=== PATIENT | female | born 1990 | race Caucasian/White ===

== ENCOUNTER 2016-12-25 11:51 | Emergency (ER) | payer OTHER ==
[~2016-12-25] VITALS: Ht 162.6 cm; Wt 90.9 kg
[~2016-12-25 11:51] MED LIST: OMEP20CA11 PO; ONDA-54 PO; TRAM50TA2 PO
[2016-12-25 12:06] VITALS: BP 118/76; PULSE 65; RESP 17; O2SAT 99
[2016-12-25] MEDS ORDERED: Albuterol-Ipratropium 3 mL Inhalation Solution NEB ONE (12:20)
--- NOTE | 2016-12-25 12:21 | ED.REPORT ---
HPI-General Illness Date of Service December 25, 2016 ED Provider: Franky Sellers MD Pt is a 26 y.o. female with a hx of asthma who presents to the ED c/o a cough onset 3 days ago with associated wheezing and feeling that she is having an asthma exacerbation. She reports associated chest pain, fever, chills, diaphoresis, and fatigue. Pt states that it feels like she has "pop rocks" in her lungs. She states that she has had to use prednisone in the past. She feels that her symptoms are severe enough that she may need prednisone again. Nursing Notes Stated Complaint: SHORTNESS OF BREATH/ DIZZY Chief Complaint: Respiratory Distress Nursing Notes Reviewed: Yes Allergies: Coded Allergies: cortisone (Verified Allergy, Severe, blisters in throat, 12/25/16) Scheduled Omeprazole (Omeprazole) 20 Mg Capsule.dr 20 MG PO DAILY Scheduled PRN Tramadol (Tramadol) 50 Mg Tablet 50 MG PO Q4H PRN PRN For Pain Miscellaneous Medications Ondansetron (Ondansetron) 8 Mg Tablet 8 MG PO General Time Seen by MD: 12:16 Chief Complaint Cough Hx Obtained From: Patient Arrived By: Walk-in Sudden in Onset?: Yes Onset Occurred: 3 days ago Symptom Duration: Since onset Location: : Chest Quality: Painful Similar Sx Previous: Yes Past Medical History Past Medical History Reports: Asthma, GERD Past Surgical History Reports: , Tonsillectomy Smoking History Never Smoker Ambulatory Status Independent Review of Systems Full Review of Systems Constitutional: Reports: Chills, Fatigue, Fever Respiratory: Reports: Non-productive cough Cardiovascular: Reports: Chest pain Skin: Reports Diaphoresis Complete sys rev & neg: except as marked. Physical Exam Vital Signs Vital Signs Date Time Temp Pulse Resp B/P Pulse Ox O2 Delivery O2 Flow Rate FiO2 12/25/16 13:54 36.8 67 16 120/72 99 Room Air 12/25/16 13:09 68 18 98 Room Air 12/25/16 12:06 37.6 65 17 118/76 99 Room Air Initial VS: Reviewed Abdomen / GI: No distention Extremities: Vascular intact, Neuro intact Skin: Warm, Dry, No cyanosis Neurologic: Alert, Oriented, Nonfocal Psychiatric: Mood/affect normal, Behavior normal, Normal thought content General/Constitutional: Awake, Alert, No acute distress, Well appearing, Well developed, Well hydrated, Well nourished, Not toxic appearing Head / Eyes: Atraumatic, Normocephalic, PERRL Respiratory / Chest: Atraumatic Wheezing / Retractions: Positive: Wheezing expiratory (Mild, scattered) Coarse breath sounds throughout Cardiovascular: Heart rate NL, Regular rhythm, Heart sounds NL, Cap refill not delayed, Peripheral circulation NL No calf swelling Interpretation & Diagnostics X-Ray Chest Interpretation Chest Xray Interpretation: IMPRESSION: Negative chest. Dictated by: Mohamud Devlin M.D. on 12/25/2016 at 12:49 Approved by: Mhoamud Devlin M.D. on 12/25/2016 at 12:49 Re-Eval/Medical Decision Med Decision/Clinical Course Pt is a 26 y.o. female with a hx of asthma who presents to the ED c/o a cough onset 3 days ago with associated wheezing and feeling that she is having an asthma exacerbation. She reports associated chest pain, fever, chills, diaphoresis, and fatigue. Pt states that it feels like she has "pop rocks" in her lungs. She states that she has had to use prednisone in the past. She feels that her symptoms are severe enough that she may need prednisone again. Here in the emergency department the patient is afebrile with stable vital signs and examination as above. CXR: Obtained, reviewed and interpreted by myself shows no evidence of infiltrates, effusions or pneumothorax. Cardiac and mediastinal silhouette normal. No bony or soft tissue abnormalities. Patient was treated with a DuoNeb x2 and reported significant symptomatic improvement. Repeat auscultation of her lungs revealed increased air movement and decreased wheezing. She will be discharged with a 5 day course of prednisone and advised to use her albuterol inhaler every 2-4 hours for the next 48 hours. She will follow up closely with her primary care physician. Presentation at this time is most consistent with asthma exacerbation. I see no evidence suggestive of pulmonary embolism, pneumonia, pneumothorax or other immediately concerning process. I feel she is appropriate for outpatient management. Prior to discharge follow-up and return precautions were reviewed in detail with the patient who verbalized understanding and agreement with the plan. The patient was discharged in stable condition. Source of Hx: Old records Re-Evaluation/Progress Note: Pt rechekced. Pt feels improved after duo neb treatment. Discussed imaging and plan for discharge, pt understands and agrees with plan. Counseled Regarding: Diagnosis, Lab results, Need for follow-up Discharge & Departure Primary Impression: Asthma exacerbation Additional Impressions: Wheezing Shortness of breath Disposition: Home Discharge Condition All VS Reviewed: Yes Condition: Improved Referrals: ESHA MONACO PA-C (PCP) Lauri Attestation Portions of this note were transcribed by Alejandro Talbot. I, Dr. Sellers personally performed the history, physical exam and medical decision-making; I reviewed and confirmed the accuracy of the information in the transcribed note. Signed by: Lauri Sprague, 12/25/16 and 1353. copies to: ESHA MONACO PA-C, Beck O MD December 25, 2016 12:21 ALEJANDRO TALBOT December 25, 2016 12:48
--- NOTE | 2016-12-25 12:51 | DRSVH ---
PROCEDURE: X-RAY CHEST, TWO VIEWS ([id number]) INDICATIONS: sob TECHNIQUE: 2 views of the chest were acquired. COMPARISON: None. FINDINGS: Surgical changes and devices: None. Lungs and pleura: No pleural effusions or pneumothorax. Lungs are clear. Mediastinum: Mediastinal contours are normal. Heart size is normal. Bones and chest wall: No suspicious bony abnormalities. Soft tissues appear unremarkable. IMPRESSION: Negative chest. Dictated by: Mohamud Devlin M.D. on 12/25/2016 at 12:49 Approved by: Mohamud Devlin M.D. on 12/25/2016 at 12:49
[2016-12-25 13:09] VITALS: PULSE 68; RESP 18; O2SAT 98
[2016-12-25 13:54] VITALS: BP 120/72; PULSE 67; RESP 16; O2SAT 99
== END 2016-12-25 13:55 | disposition home or self-care (01) ==
LOC: SED 11:51
DX: J45.901 Unspecified asthma with (acute) exacerbation (principal); R53.83 Other fatigue; K21.9 Gastro-esophageal reflux disease without esophagitis; Z88.8 Allergy status to other drugs, medicaments and biological substances
CPT/HCPCS: 71020; 94640; 94664; 99284; J7620

== ENCOUNTER 2017-01-19 11:09 | Emergency (ER) | payer OTHER ==
[~2017-01-19] VITALS: Ht 162.6 cm; Wt 92.0 kg
[2017-01-19 11:28] VITALS: BP 118/78; RESP 16; O2SAT 99
--- NOTE | 2017-01-19 12:01 | ED.REPORT ---
HPI-General Illness Date of Service Jan 19, 2017 ED Provider: Tk Pimentel PA-C Deena is an otherwise healthy 26-year-old female presenting with a chief complaint of left ear pain/itching over the last 4 days. She reports pain radiating to her neck, resulting in a severe global headache last night which inhibited sleep. He reports the headache progressively worsened over the course of 2 hours. He reports a 2 year history of her jaw popping on the left side. She denies history of ear infection, discharge from the ears, upper respiratory symptoms, cough, wheeze, shortness of breath, fever, abdominal pain , vomiting, diarrhea. Denies smoking. Nursing Notes Stated Complaint: LEFT EAR PAIN/NECK PAIN Chief Complaint: ENT & Mouth Nursing Notes Reviewed: Yes Allergies: Coded Allergies: cortisone (Verified Allergy, Severe, blisters in throat, 12/25/16) Scheduled Omeprazole (Omeprazole) 20 Mg Capsule.dr 20 MG PO DAILY Scheduled PRN Tramadol (Tramadol) 50 Mg Tablet 50 MG PO Q4H PRN PRN For Pain Miscellaneous Medications Ondansetron (Ondansetron) 8 Mg Tablet 8 MG PO General Time Seen by MD: 11:36 Chief Complaint Ear pain Past Medical History Past Medical History Reports: Asthma, GERD Past Surgical History Reports: , Tonsillectomy Smoking History Never Smoker Ambulatory Status Independent Review of Systems Negative unless stated otherwise in history of present illness Physical Exam General: Well appearing, well developed, well nourished, no acute distress. Head: Atraumatic, normocephalic. No mastoid tenderness. Eyes: No scleral icterus or injection. No discharge. PERRL. Vision grossly intact. Ears: Pinna and tragus nontender with manipulation. External auditory canal patent, atraumatic and without discharge. Tympanic membrane watts, shiny and translucent without fluid, bulging, retraction or perforation. Hearing grossly intact. Nose: Symmetrical, nares patent without discharge. No frontal or maxillary sinus tenderness. Mouth/pharynx: Tenderness with palpation and range of motion of the left TMJ. Normal dentition, mucus membranes moist. Tonsils surgically absent, uvula midline. Pharynx noninjected, no cobblestoning or discharge. Voice clear. Neck: No tenderness or lymphadenopathy. Trachea midline. Respiratory: Regular rate and rhythm. Breath sounds present, clear to auscultation and equal bilaterally. No respiratory distress. No increased work of breathing, speaks in complete sentences. Cardiovascular: Regular rate and rhythm, without murmur, gallop or rub. No pedal edema. Gastrointestinal: Abdomen flat and non-tender without guarding or rebound. Bowel sounds normoactive. Skin: Warm and dry. Neurological: Grossly nonfocal. Negative Kernig and Brudzinski. Psychological: Alert and oriented. Speech appropriate, linear and logical. Behavior appropriate. Vital Signs Vital Signs Date Time Temp Pulse Resp B/P Pulse Ox O2 Delivery O2 Flow Rate FiO2 01/19/17 12:16 60 15 119/68 100 Room Air 01/19/17 11:28 37.0 66 16 118/78 99 Room Air Normal Re-Eval/Medical Decision Med Decision/Clinical Course Otherwise healthy 26-year-old female presents with chief complaint of left ear pain over the last 3 days progressing to neck pain and global headache last night. Patient reports onset of headache over approximately 2 hours. Reports a history of clicking in her jaw over the last 2 years. Denies upper respiratory symptoms, fever. Physical examination reveals normal vitals, normal -appearing TM, negative Kernig and Brudzinski. Tenderness and pain elicited with palpation of left TMJ with range of motion. I discussed his case with Dr. Coley. I believe this is TMJ syndrome causing her headache and I am reassured there is unlikely to be an otitis media, otitis externa, mastoiditis, meningitis, subarachnoid hemorrhage, peritonsillar abscess. Provided ketorolac and acetaminophen in the department. Advise regarding [id number] analgesia. Advised regarding primary care follow-up, provided emergency return precautions. Patient verbalized understanding of, and consent to, the plan. Discharge & Departure Primary Impression: TMJ (temporomandibular joint disorder) Disposition: Home Discharge Condition All VS Reviewed: Yes Condition: Stable Additional Instructions: Evaluation of left ear pain in the emergency department includes history and physical examination which suggests that this pain is most likely caused by dysfunction of her temporomandibular joint, the left joint of your jaw. You do not appear to have an ear infection or a more concerning condition such as mastoiditis or meningitis. I believe you are stable and safe to go home. Treatment is with anti-inflammatory medications such as ibuprofen. The pain is best treated with 600 mg of ibuprofen (Advil, Motrin) every 6 hours. You can add 1000 mg of acetaminophen (Tylenol) every 6 hours. These drugs can be taken at the same time for more severe pain. Apply warm compress to the affected area 2-3 times a day, and limit your diet to soft food for the next several days. You can also try elevating the head of your bed 30. Follow-up with your primary care provider in a week or so. Return to the emergency department for any new or worsening symptoms including fever, increasing headache, increasing pain, vomiting, discharge from the ear. Referrals: OTHER,PHYSICIAN MIKE Martines [place] [facility] Provider for [facility]: Danilo Olsen Seth PA-C Jan 19, 2017 12:01
[2017-01-19 12:16] VITALS: BP 119/68; PULSE 60; RESP 15; O2SAT 100
== END 2017-01-19 12:16 | disposition home or self-care (01) ==
LOC: SED 11:09
DX: M26.602 Left temporomandibular joint disorder, unspecified (principal); L29.9 Pruritus, unspecified; R51 Headache; J45.909 Unspecified asthma, uncomplicated; K21.9 Gastro-esophageal reflux disease without esophagitis; Z88.8 Allergy status to other drugs, medicaments and biological substances
CPT/HCPCS: 96372; 99283; J1885